=== PATIENT | male | born 1995 | race Caucasian/White ===

== ENCOUNTER 2024-03-06 00:12 | Emergency (ER) | payer OTHER ==
[~2024-03-06] VITALS: Ht 180.3 cm; Wt 78.0 kg
[2024-03-06 00:18] VITALS: BP 124/74; PULSE 69; RESP 18; TEMP 98.4; O2SAT 100
[2024-03-06 00:31] VITALS: BP 141/75; PULSE 77; RESP 18; TEMP 97.6; O2SAT 100
== END 2024-03-06 01:48 | disposition home or self-care (01) ==
LOC: MED 00:12
DX: S60.221A Contusion of right hand, initial encounter (principal); F12.90 Cannabis use, unspecified, uncomplicated; F15.90 Other stimulant use, unspecified, uncomplicated; Y04.0XXA Assault by unarmed brawl or fight, initial encounter; Y92.89 Other specified places as the place of occurrence of the external cause; Y93.89 Activity, other specified; Y99.8 Other external cause status
CPT/HCPCS: 73130; 99283